=== PATIENT | female | born 1965 | race Hispanic/Latino ===

== ENCOUNTER 2017-09-26 08:04 | Outpatient (CLI) | payer BC ==
[2017-09-26] MEDS ORDERED: XYLOCAINE TOPICAL 4% TP ONE (09:29)
[2019-09-27] MEDS ORDERED: XYLOCAINE TOPICAL 4% TP ONE (16:05)
== END 2017-09-26 08:05 | disposition home or self-care (01) ==
LOC: WOUND 08:04
PROVIDERS: ATTEND Surgery
DX: E10.621 Type 1 diabetes mellitus with foot ulcer (principal); L97.421 Non-pressure chronic ulcer of left heel and midfoot limited to breakdown of skin; L97.411 Non-pressure chronic ulcer of right heel and midfoot limited to breakdown of skin; L89.623 Pressure ulcer of left heel, stage 3; L89.611 Pressure ulcer of right heel, stage 1; S20.121A Blister (nonthermal) of breast, right breast, initial encounter; E78.5 Hyperlipidemia, unspecified; E03.9 Hypothyroidism, unspecified; F31.9 Bipolar disorder, unspecified; G47.30 Sleep apnea, unspecified; X58.XXXA Exposure to other specified factors, initial encounter; Y93.89 Activity, other specified; Y92.89 Other specified places as the place of occurrence of the external cause; Y99.8 Other external cause status
CPT/HCPCS: 11042; G0463; 99215